=== PATIENT | female | born 1985 | race Two or more races ===

== ENCOUNTER 2018-07-12 17:13 | Emergency (ER) | payer MEDICAID ==
[~2018-07-12] VITALS: Ht 152.4 cm; Wt 98.9 kg
[2018-07-12 17:52] VITALS: BP 127/82
[2018-07-12] MEDS ORDERED: BACLOFEN 10 MG TAB PO ONE (21:45)
[2018-07-12] MEDS ORDERED: HYDROcodone-ACET 10/325MG TAB PO ONE (21:45)
[2018-07-12] MEDS ORDERED: HYDROcodone-ACET 5/325MG TAB PO ONE (22:00)
== END 2018-07-12 21:58 | disposition home or self-care (01) ==
LOC: ER 17:23
DX: M62.838 Other muscle spasm (principal); M54.2 Cervicalgia; R51 Headache; Z88.8 Allergy status to other drugs, medicaments and biological substances; V49.49XA Driver injured in collision with other motor vehicles in traffic accident, initial encounter; Y93.89 Activity, other specified; Y99.8 Other external cause status; Y92.488 Other paved roadways as the place of occurrence of the external cause
CPT/HCPCS: 71046; 72040; 72100; 81002; 81025

== ENCOUNTER 2023-02-15 21:36 | Emergency (ER) | payer MEDICAID ==
[~2023-02-15] VITALS: Ht 152.4 cm; Wt 109.6 kg
[2023-02-15] MEDS ORDERED: ONDANSETRON ODT 4 MG TAB PO ONE (22:00)
[2023-02-15] MEDS ORDERED: MECLIZINE HCL 25 MG TAB PO ONE (22:00)
[2023-02-15 22:11] LABS: Basophils # (auto) 0 10 ^3/uL (0-0.2); Basophils % (auto) 0.5 % (0.0-2.0); Eosinophils # (auto) 0.1 10 ^3/uL (0-0.8); Eosinophils % (auto) 1.8 % (0.0-7.0); Hematocrit 37.7 % (36.0-46.0); Hemoglobin 12.5 g/dL (12.2-16.2); Lymphocytes # (auto) 2.1 10 ^3/uL (0.4-5.4); Lymphocytes % (auto) 26.2 % (10.0-50.0); Mean Corpuscular Hemoglobin 29.2 pg (28.0-32.0); Mean Corpuscular Hgb Conc. 33.2 g/dL (32.0-36.0); Monocytes # (auto) 0.5 10 ^3/uL (0-1.3); Monocytes % (auto) 5.8 % (0.0-12.0); Neutrophils # (auto) 5.2 10 ^3/uL (1.6-8.6); Neutrophils % (auto) 65.7 % (37.0-80.0); Nucleated Red Blood Cells % 0.1 %; Red Blood Cells 4.28 10^6/uL (4.0-5.20); Red Cell Distribution Width 12.9 % (11.8-14.3); White Blood Cell 7.9 10^3/uL (4.4-10.8)
[2023-02-15 22:27] LABS: Albumin 3.4 g/dL (3.4-5.0); Calcium 8.5 mg/dL (8.5-10.1); Magnesium 2.2 mg/dL (1.6-2.6); Potassium 3.8 mmol/L (3.5-5.1)
[2023-02-15 22:31] LABS: BUN/Creatinine Ratio 6.9 (10.0-20.0); Bilirubin, Total 0.2 mg/dL (0.2-1.0); Total Protein 6.8 g/dL (6.4-8.2)
[2023-02-15] MEDS ORDERED: ZOFR4T PO (23:00)
[2023-02-15] MEDS ORDERED: MECL1TAB42 PO (23:00)
[2023-02-15 23:19] LABS: Urine Bacteria NONE SEEN /hpf (None Seen); Urine Blood Negative /uL (Negative); Urine Mucus FEW (None Seen); Urine Specific Gravity 1.014 (1.001-1.035); Urine WBC 1 /hpf (0 - 5)
[2023-02-15 23:39] VITALS: BP 127/79
== END 2023-02-15 23:41 | disposition home or self-care (01) ==
LOC: ER 21:36
DX: R42 Dizziness and giddiness (principal); L55.9 Sunburn, unspecified; X32.XXXA Exposure to sunlight, initial encounter
CPT/HCPCS: 36415; 70450; 71045; 80053; 81001; 83735; 83880; 84484; 85025; 93005; 99285; J8597; Q0162